=== PATIENT | female | born 1990 | race African-American/Black ===

== ENCOUNTER 2018-05-25 10:42 | Outpatient (CLI) | payer OTHER ==
--- NOTE | 2018-05-25 12:39 | RAD ---
THREE VIEWS LEFT HAND: Date: 05-25-18 Comparison: Left wrist series, 01-10-17. History: Pain. FINDINGS: There is fusion of the hamate and capitate bones with probable remote healed fractures involving the diaphysis of the left radius and ulna, stable. There is positive ulnar variance and a V-shape at the level of the distal radial joint which could be on the basis of prior trauma and/or Madelung deformit y, stable when compared to prior imaging. No acute fracture or evidence of dislocation is noted. IMPRESSION: Stable chronic findings at the level of the left wrist. No acute fracture or dislocation is seen. POS: [facility]
== END 2018-05-25 10:43 | disposition home or self-care (01) ==
LOC: RAD-FRANK 10:42
PROVIDERS: ATTEND Nurse Practitioner Family
DX: M79.642 Pain in left hand (principal); M24.632 Ankylosis, left wrist

== ENCOUNTER 2018-08-17 11:37 | Emergency (ER) | payer OTHER | END 2018-08-17 12:02 | disposition home or self-care (01) | LOC: ERS 11:37 | DX: R25.2 Cramp and spasm (principal); Z79.899 Other long term (current) drug therapy | CPT/HCPCS: 99283 ==

== ENCOUNTER 2019-07-11 10:24 | Outpatient (CLI) | payer OTHER ==
--- NOTE | 2019-07-11 10:43 | RAD ---
Exam: XR Ankle Lt 3 View STANDARD HISTORY: Left ankle pain. COMPARISON: 03/05/2013 FINDINGS: Findings likely related to remote fracture involving the inferior aspect medial malleolus is again se en. No acute fracture, dislocation, or other acute osseous abnormality is identified. IMPRESSION: No acute osseous abnormality is identified.
== END 2019-07-11 10:25 | disposition home or self-care (01) ==
LOC: RAD-FRANK 10:24
PROVIDERS: ATTEND Nurse Practitioner Family
DX: M25.572 Pain in left ankle and joints of left foot (principal)

== ENCOUNTER 2022-04-09 07:28 | Outpatient (CLI) | payer OTHER | END 2022-04-09 07:29 | disposition home or self-care (01) | LOC: CT 07:28 | PROVIDERS: ATTEND Orthopaedic Surgery | DX: M25.872 Other specified joint disorders, left ankle and foot (principal); M25.372 Other instability, left ankle ==

== ENCOUNTER 2022-12-27 09:48 | Emergency (ER) | payer OTHER ==
[2022-12-27] MEDS ORDERED: Acetaminophen 500 MG TAB ONE (10:28)
[2022-12-27 10:36] LABS: #Eosinphils 0.1 thou/uL (0.0-0.7); #Monocytes 0.5 thou/uL (0.11-0.59); #Neutrophils 3.2 thou/uL (1.40-6.50); %Basophils 0.6 % (0.0-1.0); %Lymphocytes 38.2 % (21.0-51.0); %Monocytes 8.1 % (0.0-10.0); %Neutrophils 51.9 % (42.0-75.0); Hematocrit 43.1 % (36.0-47.0); Hemoglobin 13.8 g/dL (12.0-16.0); Mean Corpuscular Hemoglobin 30.9 pg (27.0-31.0); Mean Corpuscular Volume 96.6 fl (78.0-98.0); Platelet Count 280 10x3/uL (130-400); RBC Distribution Width 12.6 % (11.5-14.5); Red Blood Cell (RBC) Count 4.46 mill/uL (4.20-5.40); White Blood Cell (WBC) Count 6.2 10x3/uL (4.8-10.8)
[2022-12-27 10:50] LABS: BHCG - Serum Negative (NEGATIVE); Pregs Control Background? CLEAR/WHITE (CLR/WHITE); Pregs Control Bar Appear? YES (CONTROL BAR)
[2022-12-27 11:10] LABS: ALT (SGPT) 8 U/L (8-55); AST (SGOT) 13 U/L (5-34); Albumin 4.3 g/dL (3.5-5.0); Alkaline Phosphatase 83 U/L (40-110); Anion Gap 15 mmol/L (10-20); BUN (Urea Nitrogen) 10 mg/dL (7.0-18.7); Bilirubin, Total Less than 1.0 mg/dL (0.2-1.2); CK (CPK) 109 U/L (29-168); Calc. Creatinine Clearance 0 mL/min (70-130); Calcium 9.2 mg/dL (7.8-10.44); Carbon Dioxide 23 mmol/L (22-29); Chloride 106 mmol/L (98-107); Estimated GFR 80; Globulin 3.4 g/dL (2.4-3.5); Glucose 92 mg/dL (70-105); Potassium 3.3 mmol/L (3.5-5.1); Protein, Total 7.7 g/dL (6.0-8.3); Sodium 141 mmol/L (136-145)
[2022-12-27 11:46] LABS: Bilirubin Negative (Negative); Blood, Urine Negative (Negative); CAUTI Indications for Culture Alt mental st,lethar; Clarity Clear (Clear); Glucose, Urine (Dipstick) Normal (Negative); Ketone, Urine Negative (Negative); Leukocyte 25 Leu/uL (Negative); Nitrite Negative (Negative); Protein, Urine (Dipstick) Negative (Neg-Trace); RBC/HPF 0-3 HPF (0-3); Specific Gravity, Urine 1.009 (1.002-1.036); Urobilinogen Normal mg/dL (Less than 2); WBC/HPF 0-3 HPF (0-3); pH, Urine 5.5 (5.0-9.0)
[2022-12-27 11:47] LABS: Bacteria/HPF Rare-Few HPF (None Seen)
[2022-12-27 11:48] LABS: Urine Culture Reflex No No
== END 2022-12-27 12:16 | disposition home or self-care (01) ==
LOC: ERS 09:48
DX: S80.02XA Contusion of left knee, initial encounter (principal); S40.012A Contusion of left shoulder, initial encounter; I10 Essential (primary) hypertension; W18.30XA Fall on same level, unspecified, initial encounter
CPT/HCPCS: 36415; 80053; 81001; 82550; 84484; 84703; 85025; 93005

== ENCOUNTER 2023-01-26 14:26 | Outpatient (CLI) | payer OTHER | END 2023-01-26 14:27 | disposition home or self-care (01) | LOC: RAD-FRANK 14:26 | PROVIDERS: ATTEND Nurse Practitioner Family | DX: M25.572 Pain in left ankle and joints of left foot (principal) ==

== ENCOUNTER 2023-03-18 10:28 | Emergency (ER) | payer OTHER ==
[2023-03-18] MEDS ORDERED: Ibuprofen 200 MG TAB ONE (13:29)
== END 2023-03-18 13:35 | disposition home or self-care (01) ==
LOC: ERS 10:28
DX: M25.512 Pain in left shoulder (principal); M25.562 Pain in left knee; M25.532 Pain in left wrist; M79.602 Pain in left arm; I10 Essential (primary) hypertension; I42.9 Cardiomyopathy, unspecified; V49.50XA Passenger injured in collision with unspecified motor vehicles in traffic accident, initial encounter; Z79.899 Other long term (current) drug therapy

== ENCOUNTER 2023-03-24 13:30 | Outpatient (CLI) | payer OTHER | END 2023-03-24 13:31 | disposition home or self-care (01) | LOC: RAD-FRANK 13:30 | PROVIDERS: ATTEND Nurse Practitioner Family | DX: R05.1 Acute cough (principal) | CPT/HCPCS: 71046 ==

== ENCOUNTER 2023-04-12 07:16 | Outpatient (CLI) | payer OTHER | END 2023-04-12 07:17 | disposition home or self-care (01) | LOC: RAD-FRANK 07:16 | PROVIDERS: ATTEND Nurse Practitioner Family | DX: M79.672 Pain in left foot (principal); M21.962 Unspecified acquired deformity of left lower leg ==

== ENCOUNTER 2024-12-18 10:30 | Outpatient (CLI) | payer MEDICAID | END 2024-12-18 10:31 | disposition home or self-care (01) | LOC: SCSMRI 10:30 | PROVIDERS: ATTEND Student in an Organized Health Care Education/Training Program | DX: M25.362 Other instability, left knee (principal); M25.462 Effusion, left knee; M85.862 Other specified disorders of bone density and structure, left lower leg ==